=== PATIENT | female | born 1950 | race Caucasian/White ===

== ENCOUNTER 2022-01-28 03:55 | Day surgery (SDC) | payer OTHER ==
[2022-01-25 12:06] VITALS: BMI 35.4
[2022-01-28] MEDS ORDERED: LIDOCAINE HCL 1%, 10 MG/ML (20ML VIAL) ONE (09:35)
[2022-01-28] MEDS ORDERED: PROPOFOL 20 ML ONE ×4 (09:44→11:22)
[2022-01-28] MEDS ORDERED: MIDAZOLAM HCL 2 MG/2 ML SINGLE DOSE VIAL ONE ×2 (09:44→09:48)
[2022-01-28] MEDS ORDERED: ONDANSETRON 4 MG/2 ML VIAL ONE ×2 (09:44→11:04)
[2022-01-28] MEDS ORDERED: DEXAMETHASONE SOD PHOSPHATE 4 MG/1 ML VIAL ONE ×2 (09:44→11:04)
[2022-01-28] MEDS ORDERED: ceFAZolin SODIUM 1 GM VIAL IVPB ONE (11:00)
[2022-01-28] MEDS ORDERED: ceFAZolin SODIUM 1 GM VIAL ONE (11:04)
[2022-01-28] MEDS ORDERED: LIDOCAINE HCL 1%, 10 MG/ML (20ML VIAL) NR ONE ×2 (11:11)
[2022-01-28 13:14] VITALS: RESP 18
[2022-01-28 14:05] VITALS: BP 119/71; PULSE 67; TEMP 97.8
[2022-01-28] MEDS ORDERED: PROMETHAZINE HCL 25 MG/1 ML VIAL IVPUSH PRN (15:17)
[2022-01-28] MEDS ORDERED: ONDANSETRON 4 MG/2 ML VIAL IVPUSH PRN (15:17)
[2022-01-28] MEDS ORDERED: oxyCODONE HCL 5 MG TABLET PO PRN (15:17)
[2022-01-28] MEDS ORDERED: LACTATED RINGERS SOLUTION 1,000 ML IV SCH (15:30)
== END 2022-01-28 14:15 | disposition home or self-care (01) ==
LOC: JASU-SURG 03:55
PROVIDERS: ATTEND Surgery
PROC: 0HBU0ZX Excision of Left Breast, Open Approach, Diagnostic (ICD-10-PCS; principal; 2022-01-28 10:00)
DX: D24.2 Benign neoplasm of left breast (principal); N60.22 Fibroadenosis of left breast; N64.89 Other specified disorders of breast
CPT/HCPCS: 19281; 76098-TC-FY; 88307-TC; 94760